=== PATIENT | male | born 2000 | race Two or more races ===

== ENCOUNTER 2024-09-01 17:18 | Emergency (ER) | payer OTHER ==
[~2024-09-01] VITALS: Ht 165.1 cm; Wt 90.0 kg
--- NOTE | 2024-09-01 20:20 | ED.PDOC ---
Back pain HPI HPI Comments This is a 24-year-old male presents to the ED chief complaint right calf pain x6 days. She reports pain started after long distance drive traveling. He [facility] for concern of a DVT which he states was negative. States the [facility] ordered an MRI however he notes he is going to take weeks before it is scheduled. Complaining of pain to right mid calf radiation up posterior knee and upper leg 8/10 on pain scale sharp shooting type pain in nature. No known injury. Presented in the ER porter. Denies numbness, weakness, fever, chills or any past medical history.. Chief Complaint: Lower Extremity Time Seen by MD: 18:17 Reviewed Notes: Nurses Notes, Medications, Allergies Allergies: Coded Allergies: NO KNOWN ALLERGIES (Unverified , 09/01/24) Home Meds Active Scripts Methylprednisolone (Medrol Dosepak) 4 Mg Barron, 4 MG PO UD for 6 Days, #21 TAB UAD Prov:JOSE J LEDESMA CERTIFIED LEGAL SECRETARY SPECIALIST 09/01/24 Information Source: Patient Mode of Arrival: Wheelchair Past Medical History PAST MEDICAL HISTORY: Denies Surgical History: Denies all surgeries Family History Family History: Reviewed,noncontributory to illness Social History Smoker: Non-Smoker Alcohol: Denies ETOH Use Drugs: Denies Drug Use Constitutional: denies: chills, diaphoresis, fatigue, fever, malaise, sweats, weakness, others EENTM: denies: blurred vision, double vision, ear bleeding, ear discharge, ear drainage, ear pain, ear ringing, eye pain, eye redness, hearing loss, mouth pain, mouth swelling, nasal discharge, nose bleeding, nose congestion, nose pain, photophobia, tearing, throat pain, throat swelling, voice changes, others Respiratory: denies: cough, hemoptysis, orthopnea, SOB at rest, shortness of breath, SOB with excertion, stridor, wheezing, others Cardiovascular: denies: chest pain, dizzy spells, diaphoresis, Dyspnea on exertion, edema, irregular heart beat, left arm pain, lightheadedness, palpitations, PND, syncope, others Gastrointestinal: denies: abdomen distended, abdominal pain, blood streaked bowels, constipated, diarrhea, dysphagia, difficulty swallowing, hematemesis, melena, nausea, poor appetite, poor fluid intake, rectal bleeding, rectal pain, vomiting, others Genitourinary: denies: burning, dysuria, flank pain, frequency, hematuria, incontinence, penile discharge, penile sore, pain, testicle pain, testicle swelling, urgency, others Neurological: denies: dizziness, fainting, headache, left sided numbness, left sided weakness, numbness, paresthesia, pre-existing deficit, right sided num bness, right sided weakness, seizure, speech problems, tingling, tremors, weakness, others Musculoskeletal: reports: others (Right calf pain); denies: back pain, gout, joint pain, joint swelling, muscle pain, muscle stiffness, neck pain Integumetry: denies: bruises, change in color, change in hair/nails, dryness, laceration, lesions, lumps, rash, wounds, others Allergic/Immunocompromised: denies: Difficulty Healing, Frequent Infections, Hives, Itching, others Hematologic/Lymphatic: denies: anemia, blood clots, easy bleeding, easy bruising, swollen glands, others Endocrine: denies: excessive hunger, excessive sweating, excessive thirst, excessive urination, flushing, intolerance to cold, intolerance to heat, unexplained weight gain, unexplained weight loss, others Psychiatric: denies: anxiety, bipolar disorder, depression, hopeless, panic disorder, schizophrenia, sleepless, suicidal, others Physical Exam General Appearance: No Apparent Distress, Normal HEENT: Pharynx Normal Neck: Full Range of Motion, Non-Tender Respiratory: Lungs Clear, No Respiratory Distress, Normal Breath Sounds Cardiovascular: No Murmur, Normal Peripheral Pulses, Regular Rate/Rhythm Breast Exam: Deferred Gastrointestinal: Non Tender, Soft Genitalia: Deferred Pelvic: Deferred Rectal: Deferred Extremities: Normal capillary refill, Normal inspection, Normal range of motion, Non-tender, No pedal edema, Tender (Mid calf tenderness without erythema warmth or edema. Sensory strength and motion intact positive pedal pulses.) Musculoskeletal : Apperance: Normal Neurologic: Alert, recovery analyst II-XII nml as Tested, No Motor Deficits, Normal Affect, Normal Mood, No Sensory Deficits Cerebellar Function: Normal Reflexes: Normal Skin: Dry, Normal Color, Warm Lymphatic: No Adenopathy Was a procedure done? Was a procedure done?: No Back Pain Differential Dx Differential Diagnosis: Fracture, Musculoskeletal Pain X-Ray, Labs, Meds, VS Vital Signs Date Time Temp Pulse Resp B/P (MAP) Pulse Ox O2 Delivery O2 Flow Rate FiO2 09/01/24 20:50 98.7 80 18 112/68 (83) 97 98.7 09/01/24 20:50 80 18 97 Room Air 09/01/24 17:51 98.0 106 16 134/77 (96) 95 Current Medications Medications (Trade) Dose Ordered Sig/Holger Route Start Time Stop Time Status Last Admin Ketorolac Tromethamine (Toradol Injection) 60 mg ONCE ONCE IM 09/01/24 20:30 09/01/24 20:31 DC 09/01/24 20:37 Oxycodone/ Acetaminophen (Percocet 5/ 325MG Tablet) 1 tab ONCE ONCE PO 09/01/24 20:30 09/01/24 20:31 DC 09/01/24 20:38 X-Ray, Labs, Meds, VS Comment Right tib-fib x-ray shows no acute finding or osseous lesions. Patient given Toradol 60 mg IM and a Percocet 5 mg p.o. he reports improvement in pain 2/10 on pain scale with improvement in function requesting discharge at this time. Advised [facility] as scheduled likely muscle strain. Advised on RICE. ER return precautions given patient indicated understanding agrees with discharge plan of care. Time of 1ST Reevaluation: 20:55 Reevaluation 1ST: Improved Patient Education/Counseling: Diagnosis, Treatment, Prognosis, Need For Follow Up Family Education/Counseling: Prognosis, Need For Follow Up Departure 1 Departure Time of Disposition: 20:55 Impression: Primary Impression: Strain of right calf muscle Disposition: HOME / SELF CARE / HOMELESS Condition: Stable e-Prescriptions Methylprednisolone (Medrol Dosepak) 4 Mg Barron 4 MG PO UD for 6 Days, #21 TAB UAD Prov: JOSE J LEDESMA 09/01/24 Discharged With: Significant Other Critical Care Note Critical Care Time?: No Stability Stability form required: No JOSE J LEDESMA Sep 01, 2024 20:20
[2024-09-01] MEDS: KETOROLAC TROMETH 60MG/2ML VIAL IM ONE (20:37)
[2024-09-01] MEDS: OXYCODONE W/ ACETAMINOPHEN 5/325MG TABLET PO ONE (20:38)
[2024-09-01 20:50] VITALS: BP 112/68; PULSE 80; RESP 18; TEMP 98.7; O2SAT 97
[2024-09-01] MEDS ORDERED: METH4PAK PO (20:57)
--- NOTE | 2024-09-01 21:10 | DVH ---
XY R TIB FIB XRAY, INDICATION: pain in calf TECHNICAL DATA: Single lateral view of the right tib fib COMPARISON: None FINDINGS: There is no osseous abnormality. Soft tissues are normal. IMPRESSION: No acute fracture or dislocation.
== END 2024-09-01 21:13 | disposition home or self-care (01) ==
LOC: ER 17:18
DX: S86.111A Strain of other muscle(s) and tendon(s) of posterior muscle group at lower leg level, right leg, initial encounter (principal); X58.XXXA Exposure to other specified factors, initial encounter; Y93.89 Activity, other specified; Y92.89 Other specified places as the place of occurrence of the external cause; Y99.8 Other external cause status
CPT/HCPCS: 73590; 96372; 99283; J1885